=== PATIENT | male | born 1925 | race Caucasian/White ===

== ENCOUNTER 2016-09-06 20:41 | Emergency (ER) | payer MEDICARE ==
[2016-09-06] MEDS ORDERED: Famotidine 20 MG TAB ONE (20:55)
[2016-09-06] MEDS ORDERED: diphenhydrAMINE HCl 25 MG CAP ONE (20:55)
[2016-09-06] MEDS ORDERED: predniSONE 20 MG TAB ONE (20:55)
[2016-09-06] MEDS ORDERED: Ciprofloxacin 500 MG TAB ONE (21:06)
== END 2016-09-06 21:30 | disposition home or self-care (01) ==
LOC: BURERS 20:41
DX: L27.0 Generalized skin eruption due to drugs and medicaments taken internally (principal); T37.0X5A Adverse effect of sulfonamides, initial encounter; N39.0 Urinary tract infection, site not specified; Z79.82 Long term (current) use of aspirin; Z79.899 Other long term (current) drug therapy
CPT/HCPCS: 99282; J7506